=== PATIENT | male | born 1985 | race Two or more races ===

== ENCOUNTER 2025-08-10 20:07 | Inpatient (IN) | payer MEDICAID, SELFPAY ==
[2025-08-10] VITALS (8 sets, daily range): BP systolic 121–135; BP diastolic 79–89; PULSE 76–129; RESP 18–20; TEMP 37.2–39.1; O2SAT 92–98; BMI 39.1
--- NOTE | 2025-08-10 20:36 | PD.EDABDPN ---
ED Abdominal Pain RME/HPI General Chief Complaint: Abdominal Pain Stated complaint: RUQ ABD PAIN Time seen by provider: 08/10/25 21:02 Arrival date/time: 08/10/25 20:07 RME / HPI RME / HPI narrative: See [facility] for Dr. Briggs's HPI Documentation. Related Data Home Medications ?Medication ?Instructions ?Recorded ?Confirmed fluconazole 50 mg tablet (Diflucan) 100 mg PO QDAY 03/21/18 03/21/18 Previous Rx's ?Medication ?Instructions ?Recorded acetaminophen 500 mg capsule 1,000 mg (2 x 500 mg) PO Q6H PRN 09/07/20 fever or pain #60 caps albuterol sulfate 90 mcg/actuation 2 puff inhalation QID PRN 09/07/20 aerosol inhaler shortness of breath or wheezing #18 grams azithromycin 250 mg tablet See Rx Instructions PO .COMPLEX #6 09/07/20 tabs Allergies Allergy/AdvReac Type Severity Reaction Status Date / Time No Known Allergies Allergy Verified 08/11/25 12:19 Review of Systems Review of Systems Systems Reviewed: All systems reviewed, normal except as documented ED Exam Narrative Physical exam: See [facility] for Dr. Briggs's Physical Exam Documentation. Course Quality Measures none Orders Category Date Time Status Admit to Inpatient Status Routine Admission 08/11/25 04:06 Active Patient Condition Routine Admission 08/11/25 04:06 Ordered COVID-19 Screening Questionnaire NOW Care 08/11/25 03:06 Completed Decision to Admit X1 Care 08/11/25 03:06 Completed Miscellaneous Nursing Order NOW Care 08/10/25 20:42 Completed NPO NOW Care 08/11/25 03:06 Completed Saline [Insert IV] NOW Care 08/10/25 20:[address] abdomen pelvis wo con Stat Exams 08/10/25 20:43 Completed US gall bladder Stat Exams 08/10/25 20:43 Completed XR chest 1V portable Stat Exams 08/10/25 20:43 Completed Alcohol, Blood Medical Stat Lab 08/10/25 21:12 Completed Amylase Stat Lab 08/10/25 21:12 Completed Bilirubin,Direct Stat Lab 08/10/25 21:12 Completed Blood Culture (Lab) Stat Lab 08/10/25 21:12 Received CBC Stat Lab 08/10/25 21:09 Completed CMP [Comprehensive Metabolic Panel] Stat Lab 08/10/25 21:12 Completed CRP [C-Reactive Protein] Stat Lab 08/10/25 21:12 Completed Comprehensive Metabolic Panel Stat Lab 08/11/25 03:23 Completed ESR [Sed Rate (ESR)] Stat Lab 08/10/25 21:09 Completed Hemoglobin A1C [Glycohemoglobin w (eAG)] Stat Lab 08/10/25 21:09 Completed Lactate (Lactic Acid) Stat Lab 08/10/25 21:12 Completed Lipase Stat Lab 08/10/25 21:12 Completed Lipid Panel Stat Lab 08/11/25 03:23 Completed Liver Panel Stat Lab 08/11/25 03:23 Completed Magnesium Stat Lab 08/10/25 21:12 Completed Procalcitonin Stat Lab 08/10/25 21:12 Completed TSH [Thyroid Stimulating Hormone] Stat Lab 08/10/25 21:12 Completed Troponin I Stat Lab 08/10/25 21:12 Completed UA, C/S IF [Urinalysis, C/S if Indicated] Stat Lab 08/11/25 00:33 Ordered VBG [Venous Blood Gas] Stat Lab 08/10/25 21:12 Completed Acetaminophen Tab [Tylenol ES Tab] Med 08/10/25 21:17 Discontinued 1,000 mg PO X1 ONE Acetaminophen Tab [Tylenol Tab] Med 08/11/25 04:08 Active 650 mg PO Q6H PRN Enoxaparin [Lovenox] Med 08/11/25 09:00 Active 40 mg SC QDAY HYDROcodone*/APAP 5/325 [Courtenay 5/325] Med 08/11/25 04:08 Active 1 tab PO Q6HR PRN HYDROmorphone INJ [Dilaudid Inj] Med 08/10/25 20:42 Discontinued 1 mg IVP X1 ONE Ketorolac Inj [Toradol Inj] Med 08/10/25 20:42 Discontinued 30 mg IVP X1 ONE Morphine* Inj Med 08/11/25 04:08 Discontinued 2 mg IVP Q4HR PRN Ondansetron Inj [Zofran Inj] Med 08/11/25 04:08 Active 4 mg IVP Q6H PRN Ondansetron Inj [Zofran Inj] Med 08/10/25 20:42 Discontinued 4 mg IVP X1 ONE Piper/Tazo Inj [Zosyn Inj] 4.5 gm Med 08/11/25 06:00 Active Sodium Chloride 0.9% (Pop) [NS 0.9% mini bag] 100 ml IV Q8HR Piper/Tazo Inj [Zosyn Inj] 4.5 gm Med 08/10/25 23:03 Discontinued Sodium Chloride 0.9% (Pop) [NS 0.9% mini bag] 100 ml IV X1 Ringers Lactated 1000 ml [Lactated Ringers] 1,000 ml Med 08/10/25 20:41 Discontinued IV 1,000 mls/hr Ringers Lactated 1000 ml [Lactated Ringers] 1,000 ml Med 08/10/25 20:42 Discontinued IV 1,000 mls/hr Ringers Lactated 1000 ml [Lactated Ringers] 1,000 ml Med 08/11/25 04:15 Discontinued IV 75 mls/hr Ringers Lactated 1000 ml [Lactated Ringers] 1,000 ml Med 08/11/25 03:00 Discontinued IV 999 mls/hr Code Status Routine Oth 08/11/25 04:03 Ordered Vital Signs Vital signs: Vital Signs Temperature 99.5 F 08/10/25 20:33 Pulse Rate 129 H 08/10/25 20:33 Respiratory Rate 19 08/10/25 20:33 Blood Pressure 129/81 08/10/25 20:33 Pulse Oximetry (%) 97 08/10/25 20:33 Oxygen Delivery Method Room Air 08/10/25 20:33 Abdominal Pain MDM MDM Narrative MDM Narrative:: This section includes all my notes and documentations, including HPI, PE, and ED course. Dennis Briggs MD HPI: 39 y/o male presents with severe abdominal pain, vomiting, and subjective fever and chills and bodyaches and malaise for several days. Had similar episode about 6 months ago. No other complaints. ROS: All negative except as documented in HPI. Physical Exam: General: Alert and oriented. In severe pain. Eyes: Conjunctivae and lids clear. ENT: No nasal congestion. Neck: Supple. Heart: RRR. Lungs: No respiratory distress. Good air movement. No rhonchi, wheezing, rales. Abdomen: Soft with RUQ tenderness. Decreased bowel sounds. No distension. No rebound or guarding. Back: No CVA tenderness. Skin: Warm and dry. Neuro: Alert and oriented X 3. I reviewed all diagnostic test results: My interpretation of the chest x-ray is: NAD. My review of the Abdomen/Pelvis CT report is no acute cholecystitis. My review of the Gall Bladder US report is acute cholecystitis. Blood tests and urine tests remarkable for WBC 23.7. At this point, diagnoses include: Acute Cholecystitis Treatment here from me included: IVF Dilaudid 1 mg IV Toradol 30 mg IV Oral Tylenol 1000 mg Zofran 4 mg IV Zosyn 4.5 g IV His pain improved. I discussed the case with our surgeon and our hospitalist. About the presentation and exam and diagnostics and treatments here. And need of further care in the hospital. Agreed to accept the patient. Dennis Briggs MD Patient data External records reviewed:: [facility] previous records (Reviewed prior ED records from 02/28/22. Patient was seen for Dysuria.) Clinical information provided by:: patient Social determinants that could affect healthcare access:: none Patient has the following chronic illnesses:: None reported How is presenting disease/condition affected by chronic disease/condition?: no chronic disease Evaluation data The following diagnostics were reviewed and interpreted by me:: lab results and radiology exam(s) Lab and/or radiology exams considered but not ordered:: None Interpretation Summary: I reviewed all diagnostic test results: My interpretation of the chest x-ray is: NAD. My review of the Abdomen/Pelvis CT report is no acute cholecystitis. My review of the Gall Bladder US report is acute cholecystitis. Blood tests and urine tests remarkable for WBC 23.7. Medications / Prescriptions Medications or Prescriptions considered but not ordered:: None Medication administrations:: Medication Administration History Acetaminophen (Acetaminophen 325 Mg Tablet) 650 mg PO Q6H PRN PRN Reason: Fever >100.4 Stop: 09/10/25 04:07 Hydrocodone Bitart/Acetaminophen (Hydrocodone/Apap 5/325 Tablet) 1 tab PO Q6HR PRN PRN Reason: PAIN SCALE 4-6 (Moderate Stop: 08/16/25 04:07 Enoxaparin Sodium (Enoxaparin Sod Inj 40 Mg/0.4 Ml Syringe) 40 mg SC QDAY KENDY Stop: 08/25/25 08:59 Last Admin: 08/11/25 08:27 Dose: 40 mg Documented By: MICHELLE Piperacillin Sod/Tazobactam (Sod 4.5 gm/ Sodium Chloride) 100 mls @ 25 mls/hr IV Q8HR [facility]; Protocol Stop: 08/18/25 05:59 Last Admin: 08/11/25 14:18 Dose: 25 mls/hr Documented By: Infusion: 08/11/25 12:27 Dose: Infused Documented By: Admin: 08/11/25 08:27 Dose: 25 mls/hr Documented By: MICHELLE Sodium Chloride (Ns) 1,000 mls @ 125 mls/hr IV .Q8H KENDY Stop: 09/10/25 13:09 Last Admin: 08/11/25 18:15 Dose: 125 mls/hr Documented By: MICHELLE Ketorolac Tromethamine (Ketorolac Inj 30 Mg/Ml Vial) 30 mg IVP Q6HR PRN PRN Reason: PAIN 1-6 (mild-mod Stop: 08/16/25 13:09 Last Admin: 08/11/25 18:15 Dose: 30 mg Documented By: MICHELLE Morphine Sulfate (Morphine Sulf Inj 4 Mg/Ml Vial) 5 mg IVP Q4HR PRN PRN Reason: PAIN SCALE 4-6 (Moderate Stop: 08/16/25 13:09 Ondansetron HCl (Ondansetron Inj 2 Mg/Ml Inj 2 Ml) 4 mg IVP Q6H PRN; Protocol PRN Reason: NAUSEA OR VOMITING Stop: 09/10/25 04:07 Ondansetron HCl (Ondansetron Inj 2 Mg/Ml Inj 2 Ml) 4 mg IVP Q4HR PRN PRN Reason: NAUSEA OR VOMITING Stop: 09/10/25 13:09 Discontinued Medications Acetaminophen (Acetaminophen 500 Mg Tablet) 1,000 mg PO X1 ONE Stop: 08/10/25 21:18 Last Admin: 08/10/25 21:36 Dose: 1,000 mg Documented By: Bupivacaine HCl/Epinephrine Bitart (Bupivacaine Mpf/Epi 0.5% 30 Ml Vial 1:200,000) Confirm Administered Dose 30 ml .ROUTE .STK-MED ONE Stop: 08/11/25 09:23 Dexamethasone Sodium Phosphate (Dexamethasone Sod Phos Inj 10 Mg/Ml Vial) Confirm Administered Dose 10 mg .ROUTE .STK-MED ONE Stop: 08/11/25 09:23 Fentanyl Citrate (Fentanyl Cit Inj 50 Mcg/Ml Amp 2ml) Confirm Administered Dose 100 mcg .ROUTE .STK-MED ONE Stop: 08/11/25 09:23 Fentanyl Citrate (Fentanyl Cit Inj 50 Mcg/Ml Amp 2ml) Confirm Administered Dose 100 mcg .ROUTE .STK-MED ONE Stop: 08/11/25 10:30 Fentanyl Citrate (Fentanyl Cit Inj 50 Mcg/Ml Amp 2ml) 50 mcg IVP Q5MIN PRN PRN Reason: PAIN SCALE 4-10(Mod-Sev Stop: 08/11/25 13:23 Hydralazine HCl (Hydralazine Inj 20 Mg/Ml Vial) 5 mg IV Q20MIN PRN PRN Reason: SEE COMMENTS Stop: 08/11/25 13:23 Hydromorphone HCl (Hydromorphone Inj 2 Mg/Ml Vial) 1 mg IVP X1 ONE Stop: 08/10/25 20:43 Last Admin: 08/10/25 21:18 Dose: 1 mg Documented By: SR Hydromorphone HCl (Hydromorphone Inj 2 Mg/Ml Vial) Confirm Administered Dose 2 mg .ROUTE .STK-MED ONE Stop: 08/11/25 09:36 Hydromorphone HCl (Hydromorphone Inj 2 Mg/Ml Vial) 0.5 mg IVP Q10MIN PRN PRN Reason: PAIN SCALE 4-10(Mod-Sev Stop: 08/11/25 13:23 Lactated Ringer's (Lactated Ringers) 1,000 mls @ 1,000 mls/hr IV .Q1H ONE Stop: 08/10/25 21:40 Last Infusion: 08/10/25 22:38 Dose: Infused Documented By: Admin: 08/10/25 21:38 Dose: 1,000 mls/hr Documented By: Infusion: 08/10/25 21:38 Dose: Infused Documented By: Admin: 08/10/25 21:27 Dose: 1,000 mls/hr Documented By: SR Lactated Ringer's (Lactated Ringers) 1,000 mls @ 1,000 mls/hr IV .Q1H ONE Stop: 08/10/25 21:41 Last Infusion: 08/10/25 22:11 Dose: Infused Documented By: Admin: 08/10/25 21:11 Dose: 1,000 mls/hr Documented By: SR Piperacillin Sod/Tazobactam (Sod 4.5 gm/ Sodium Chloride) 100 mls @ 200 mls/hr IV X1 ONE; Protocol Stop: 08/10/25 23:32 Last Infusion: 08/11/25 00:12 Dose: Infused Documented By: Admin: 08/10/25 23:42 Dose: 200 mls/hr Documented By: SR Lactated Ringer's (Lactated Ringers) 1,000 mls @ 999 mls/hr IV .Q1H1M ONE Stop: 08/11/25 04:00 Last Infusion: 08/11/25 07:55 Dose: Infused Documented By: Admin: 08/11/25 04:50 Dose: 999 mls/hr Documented By: SR Lactated Ringer's (Lactated Ringers) 1,000 mls @ 75 mls/hr IV .[id number] KENDY Stop: 09/10/25 04:14 Last Admin: 08/11/25 14:18 Dose: 75 mls/hr Documented By: Infusion: 08/11/25 14:18 Dose: Infused Documented By: Admin: 08/11/25 06:02 Dose: 75 mls/hr Documented By: SR Acetaminophen (Ofirmev Inj) Confirm Administered Dose 100 mls @ ud IV .STK-MED ONE Stop: 08/11/25 09:57 Promethazine HCl 12.5 mg/ (Sodium Chloride) 50.5 mls @ 2.5 mls/min IV X1 PRN PRN Reason: NAUSEA OR VOMITING Stop: 08/11/25 13:24 Ketorolac Tromethamine (Ketorolac Inj 30 Mg/Ml Vial) 30 mg IVP X1 ONE Stop: 08/10/25 20:43 Last Admin: 08/10/25 21:29 Dose: 30 mg Documented By: SR Ketorolac Tromethamine (Ketorolac Inj 30 Mg/Ml Vial) 30 mg IVP X1 PRN PRN Reason: PAIN SCALE 4-10(Mod-Sev Stop: 08/11/25 13:23 Lidocaine HCl (Lidocaine Inj Pf 1% 5 Ml Vial) Confirm Administered Dose 5 ml .ROUTE .STK-MED ONE Stop: 08/11/25 09:25 Meperidine HCl (Meperidine Inj 50 Mg/Ml Vial) 12.5 mg IVP Q5M PRN PRN Reason: SHIVERING Stop: 08/11/25 13:23 Metoprolol Tartrate (Metoprolol Tartrate Inj 1 Mg/Ml Vial 5 Ml) 1 mg IVP Q5MIN PRN PRN Reason: TACHYCARDIA Stop: 08/11/25 13:24 Midazolam HCl (Midazolam Inj 1 Mg/Ml Vial 2 Ml) Confirm Administered Dose 2 mg .ROUTE .STK-MED ONE Stop: 08/11/25 09:36 Midazolam HCl (Midazolam Inj 1 Mg/Ml Vial 2 Ml) 1 mg IVP Q5MIN PRN PRN Reason: ANXIETY Stop: 08/11/25 13:23 Morphine Sulfate (Morphine Sulf Inj 4 Mg/Ml Vial) 2 mg IVP Q4HR PRN PRN Reason: PAIN SCALE 7-10 (Severe Stop: 08/16/25 04:07 Ondansetron HCl (Ondansetron Inj 2 Mg/Ml Inj 2 Ml) 4 mg IVP X1 ONE; Protocol Stop: 08/10/25 20:43 Last Admin: 08/10/25 21:18 Dose: 4 mg Documented By: Ondansetron HCl (Ondansetron Inj 2 Mg/Ml Inj 2 Ml) Confirm Administered Dose 4 mg .ROUTE .STK-MED ONE Stop: 08/11/25 10:30 Phenylephrine HCl (Phenylephrine Inj In Ns 100 Mcg/Ml 10 Ml Syringe) Confirm Administered Dose 1,000 mcg .ROUTE .STK-MED ONE Stop: 08/11/25 09:59 Potassium Chloride (Potassium Chloride 20 Meq Tabcr) 40 meq PO X1 ONE Stop: 08/11/25 07:57 Last Admin: 08/11/25 08:27 Dose: 40 meq Documented By: MICHELLE Propofol (Propofol Inj 10 Mg/Ml Vial 20 Ml) Confirm Administered Dose 400 mg IV .STK-MED ONE Stop: 08/11/25 09:23 Rocuronium Ramona (Rocuronium Inj 10 Mg/Ml Vial 10 Ml) Confirm Administered Dose 100 mg .ROUTE .STK-MED ONE Stop: 08/11/25 09:23 Treatment here from [place] included: IVF Dilaudid 1 mg IV Toradol 30 mg IV Oral Tylenol 1000 mg Zofran 4 mg IV Zosyn 4.5 g IV Consultations Consultation(s) initiated? (list below): Yes Consultation #1 (Physician, Specialty, Details): I discussed the case with our surgeon and our hospitalist. About the presentation and exam and diagnostics and treatments here. And need of further care in the hospital. Agreed to accept the patient. Diagnosis Differential diagnosis abdominal pain: acute appendicitis, calculus of kidney, constipation, diverticulitis, gastroenteritis, pancreatitis, small bowel obstruction and other (Biliary colic) Most likely diagnosis given after review of the tests above:: Acute Cholecystitis Admission Indicated Admission indicated?: indicated Explain why admission is indicated or not indicated:: Acute Cholecystitis Admission Request Was there a request for admission?: Yes Admission Attestation Admission request attestation: Discussed case with Hospitalist service regarding admission. Discussed patients ED course, exam findings, labs, and radiology results. Agreed to accept the patient for admission. Disposition Plan Disposition Plan: Admit Discharge Plan Plan Patient Disposition: Admit Acute Care w/in Hospital Problem List Clinical Impression: Acute cholecystitis
--- NOTE | 2025-08-10 20:43 | XR_ITS ---
Examination: CT abdomen and pelvis without contrast. Coronal 3-D reconstructions. Sagittal 2-D reconstructions. Date and time of exam: August 10, 2025, 2056 hours INDICATIONS: Right upper abdominal pain back pain beginning 4 days ago CTDI: vol (mGy): 14.5 DLP: (mGycm): 987 Technique: Axial images of the abdomen have been obtained, 3 mm slice thickness Intravenous contrast material has not been administered. Low dose protocols were performed. One or more of the following dose reduction techniques were used; automated exposure control, adjustment of the mA and/or KV according to patient size, use of iterative reconstruction technique. Findings: No focal liver or splenic lesions Acute calculus cholecystitis No pancreatic or adrenal mass No renal or ureteral calculi Aorta normal size No bowel obstruction Small fat-containing clinical hernia Normal appendix No diverticulitis No bowel obstruction Bladder intact IMPRESSION: Acute calculus cholecystitis, consider MRCP follow-up
--- NOTE | 2025-08-10 20:43 | XR_ITS ---
Examination: Abdomen sonogram, Limited Date and time of exam: August 11, 2025, 0036 hours INDICATIONS: Right upper abdominal pain beginning 4 days ago Technique: Real-time thao scale transabdominal sonographic images of the upper abdomen obtained. Findings: Multiple gallstones Borderline thickening gallbladder wall 0.4 cm Common bile duct 0.3 cm Pancreas obscured by bowel gas Liver 17.2 cm smooth contour no focal liver lesions Normal hepatopetal portal venous flow Patent IVC IMPRESSION: Cholelithiasis, consider MRCP or HIDA scan follow-up to exclude cholecystitis
--- NOTE | 2025-08-10 20:43 | XR_ITS ---
EXAMINATION: PA chest single view TECHNIQUE: Upright PA chest single view Date and time: August 10, 2025, 2042 hours INDICATIONS: Fever backache beginning 3 days ago. FINDINGS: Normal heart size Lungs are clear. Osseous structures are intact IMPRESSION: No active disease
[2025-08-10] MEDS: RINGERS LACTATED 1000 ML 1,000 ML IV ×3 (21:11→21:38)
[2025-08-10] MEDS: ONDANSETRON INJ 2 MG/ML INJ 2 ML 4 MG IVP (21:18)
[2025-08-10] MEDS: HYDROmorphone INJ 2 MG/ML VIAL 1 MG IVP (21:18)
[2025-08-10] MEDS: KETOROLAC INJ 30 MG/ML VIAL IVP (21:29)
[2025-08-10 21:31] LABS: Base Excess, Venous 4 (-3-3); O2 Saturation, Venous 95 % (96-97); PCO2, Venous 30 mmHg (36-56); PO2, Venous 61 mmHg (15-58); pH, Venous 7.53 (7.33-7.66)
[2025-08-10 21:32] LABS: Lactate (Lactic Acid) 1.2 mMol/L (0.4-2.0)
[2025-08-10 21:32] LABS: Basophils # (Auto) 0.1 Thou/mm3 (0.0-0.2); Basophils % (Auto) 0 % (0-2.5); Eosinophils # (Auto) 0.2 Thou/mm3 (0.0-0.5); Eosinophils % (Auto) 1 % (0-10); Hematocrit 44.3 % (41.0-53.0); Hemoglobin 15.4 g/dL (13.5-16.0); Immature Granulocytes Auto 0.14 Thou/mm3 (0.00-0.00); Lymphocytes # (Auto) 1.7 Thou/mm3 (1.0-4.8); Lymphocytes % (Auto) 7 % (10-50); Mean Corpuscular HGB Conc 34.8 g/dl (31.0-37.0); Mean Corpuscular Hemoglobin 29.5 pg (25.0-35.0); Mean Corpuscular Volume 85 fL (80-100); Monocytes # (Auto) 2.2 Thou/mm3 (0.0-0.8); Monocytes % (Auto) 9 % (0-12); Neutrophils # (Auto) 19.5 Thou/mm3 (1.8-7.7); Neutrophils % (Auto) 82 % (37-80); Nucleated Red Blood Cell # 0.00 Thou/mm3 (0.00-0.00); Nucleated Red Blood Cell % 0 /100 WBC (0); Platelet Count 316 Thou/mm3 (140-440); RDW Standard Deviation 40.5 fL (35.1-43.9); Red Blood Count 5.22 Miln/mm3 (4.50-5.90); White Blood Count 23.7 Thou/mm3 (3.8-10.6)
[2025-08-10] MEDS: ACETAMINOPHEN 500 MG TABLET 1000 MG PO (21:36)
[2025-08-10 21:49] LABS: Glucose Estimated Average 94 mg/dL (80-131); Hemoglobin A1C 4.9 % Hgb (4.8-6.0)
[2025-08-10 22:19] LABS: Sed Rate (ESR) 79 mm/hr (0-15)
[2025-08-10 22:42] LABS: Alanine Aminotransferase 19 U/L (10-49); Albumin, Serum 4.4 gm/dL (3.5-5.0); Albumin/Globulin Ratio 1.3 (1.2-2.2); Alcohol, Blood Medical < 3.0 mg/dL (0-10.0); Alkaline Phosphatase 85 U/L (46-116); Anion Gap 11 (7-16); Aspartate Amino Transferase 26 U/L (0-34); BUN/Creatinine Ratio 8 Ratio (12-20); Bilirubin,Direct 0.7 mg/dL (0.0-0.3); Bilirubin,Total 1.6 mg/dL (0.3-1.2); Blood Urea Nitrogen 7 mg/dL (9-23); Calcium 9.6 mg/dL (8.3-10.6); Calcium (Corrected) 9.6 mg/dL (8.5-10.1); Carbon Dioxide 25.4 mMol/L (20.0-31.0); Chloride 102 mMol/L (98-107); Creatinine (Component) 0.9 mg/dL (0.6-1.3); Estimated Creatinine Clearance 142.5 mL/min (>60); Globulin 3.3 gm/dL (2.3-3.5); Glucose 115 mg/dL (74-106); Lipase 30 U/L (12-53); Magnesium 2.0 mg/dL (1.6-2.6); Osmolality,Calculated 274 (275-295); Potassium 3.4 mMol/L (3.4-5.1); Procalcitonin 0.50 ng/ml (0.0-0.49); Sodium 138 mMol/L (136-145); Thyroid Stimulating Hormone 1.37 uIU/mL (0.55-4.78); Total Protein 7.7 gm/dL (5.7-8.2); Troponin I < 0.002 ng/mL (0.0-0.045); eGFR > 60 See Note
[2025-08-10 23:19] LABS: Amylase 46 U/L (30-118); C-Reactive Protein > 25.0 mg/dL (0.0-0.9)
[2025-08-10] MEDS: PIPER/TAZO INJ 4.5 GM in SODIUM CHLORIDE 0.9% (POP) 100 ML IV (23:42)
[2025-08-11] VITALS (12 sets, daily range): BP systolic 97–136; BP diastolic 56–89; PULSE 65–98; RESP 14–18; TEMP 36.1–36.9; O2SAT 92–98; BMI 39.1
--- NOTE | 2025-08-11 01:36 | PRELIM_ITS ---
Right upper quadrant abdominal ultrasound with Limited Doppler. August 11, 2025 at 0036 hours Clinical history: RUQ tenderness. No prior study is available for comparison. Findings: The evaluation is limited due to overlying bowel gas. The liver is enlarged, measuring 17.2 cm and demonstrates increase in echogenicity and heterogeneous echotexture. No intrahepatic biliary ductal dilatation is demonstrated. The main portal vein is patent and demonstrates hepatopetal flow. Multiple echogenic foci are noted within the gallbladder, which may represent calculi. There is gallbladder wall thickening, measuring 3.7 mm. No evidence of pericholecystic fluid. Sonographic Hurley sign could not be elicited, the patient has received pain medication. The common bile duct is normal in caliber at 3 mm. The pancreas is not visualized, due to bowel gas. The inferior vena cava is unremarkable to the extent visualized. Impression: Limited evaluation as described. Cholelithiasis with gallbladder wall thickening, in the appropriate clinical setting, the possibility of acute cholecystitis cannot be excluded. Hepatomegaly with fatty infiltration of the liver and heterogeneous echotexture, which may represent liver parenchymal disease. Report Electronically Signed By: Darien Delvalle 08/11/2025 1:35:08 AM [EST]
--- NOTE | 2025-08-11 01:48 | PC.NURSE ---
[facility] has been contacted, awaiting on their arrival to complete US.
[2025-08-11 03:57] LABS: Alanine Aminotransferase 19 U/L (10-49); Albumin, Serum 3.8 gm/dL (3.5-5.0); Alkaline Phosphatase 75 U/L (46-116); Aspartate Amino Transferase 23 U/L (0-34); Bilirubin,Direct 0.8 mg/dL (0.0-0.3); Bilirubin,Total 1.5 mg/dL (0.3-1.2); Total Protein 6.8 gm/dL (5.7-8.2)
--- NOTE | 2025-08-11 04:14 | PD.RESHP ---
Documentation for date of: 08/11/25 HPI History of Present Illness History of present illness: 39-year-old male with remote history of valley fever who presents to the ED for acute onset abdominal pain. Patient states that he was in his usual state of health until he experienced sudden onset pain approximately 3 days ago with associated fever, chills, nausea, and vomiting as well as decreased p.o. intake. States pain is located in mid lower abdominal region as well as his right upper quadrant, is sharp in nature and radiates to his back and right shoulder. In addition, states that his urine has become dark brown in color and that others have noticed his skin becoming yellow appearing. Of note, he had a similar episode approximately 5 to 6 months ago and did not seek out medical attention as it had self-resolved. In the ED, vitals showed pulse of 129, Tmax of 102.3 ?F. CBC showed leukocytosis of 23.7. CHEM panel significant for elevated T. bili at 1.6 and direct bili of 0.7, normal LFTs and alk phos, CRP greater than 25, Pro-Segundo 0.5. CT A/P showed acute calculous cholecystitis and small fat-containing hernia. CXR unremarkable. Gallbladder ultrasound prelim read indicates cholelithiasis with possible acute cholecystitis and no CBD abnormalities noted. Given 3 L LR, Zofran, Dilaudid 1 mg x 1, ketorolac 30 mg x 1, and Zosyn. General surgery consulted and states will take patient to the OR tomorrow morning. PMHx: Valley fever Medications: None SHx: Drinks socially, denies smoking or illicit drug use PSHx: None Review of Systems Review of Systems Systems Reviewed: All systems reviewed, normal except as documented Exam Vital Signs Temp Pulse Resp BP Pulse Ox O2 Del Method 98.5 F 84 17 126/74 96 Room Air 08/11/25 03:00 08/11/25 03:00 08/11/25 03:00 08/11/25 03:00 08/11/25 03:00 08/11/25 03:00 Narrative Exam General: AOx3, no acute distress, able to speak full sentences HEENT: NC/AT, mucous membranes moist, bilateral sclera anicteric Cardiovascular: regular rate and rhythm, S1/S2 present, no murmurs appreciated Pulmonary: clear to auscultation bilaterally, no rales/rhonchi/wheezes Abdominal: RUQ tenderness to soft palpation, soft, non-distended Musculoskeletal: normal ROM, no peripheral edema Skin: warm and dry, intact, no rashes Neuro: CN II-XII intact, no focal deficits Results: Labs 08/12/25 05:37 08/12/25 05:37 Labs: Short CBC 08/10/25 Range/Units 21:09 WBC 23.7 H (3.8-10.6) Thou/mm3 Hgb 15.4 (13.5-16.0) g/dL Hct 44.3 (41.0-53.0) % Plt Count 316 (140-440) Thou/mm3 BMP 08/10/25 21:12 Sodium 138 Potassium 3.4 Chloride 102 Carbon Dioxide 25.4 BUN 7 L Creatinine 0.9 Glucose 115 H Calcium 9.6 Cardiac Enzymes 08/10/25 Range/Units 21:12 Troponin I < 0.002 (0.0-0.045) ng/mL Liver Function 08/10/25 08/11/25 Range/Units 21:12 03:23 Total Bilirubin 1.6 H 1.5 H (0.3-1.2) mg/dL Direct Bilirubin 0.7 H 0.8 H (0.0-0.3) mg/dL AST 26 23 (0-34) U/L ALT 19 19 (10-49) U/L Alkaline Phosphatase 85 75 (46-116) U/L Albumin 4.4 3.8 D (3.5-5.0) gm/dL ABG Interpretation ABG results: 08/10/25 21:12 VBG pH 7.53 VBG pCO2 30 L VBG pO2 61 H VBG Base Excess 4 H Quality Measures Quality Measures VTE prophylaxis Medications Home Medications and Allergies Home Medications ?Medication ?Instructions ?Recorded ?Confirmed ?Type fluconazole 50 mg tablet (Diflucan) 100 mg PO QDAY 03/21/18 08/12/25 History Allergies Allergy/AdvReac Type Severity Reaction Status Date / Time No Known Allergies Allergy Verified 08/11/25 12:19 Visit Medications Acetaminophen (Acetaminophen 325 Mg Tablet) 650 mg PO Q6H PRN PRN Reason: Fever >100.4 Stop: 09/10/25 04:07 Hydrocodone Bitart/Acetaminophen (Hydrocodone/Apap 5/325 Tablet) 1 tab PO Q6HR PRN PRN Reason: PAIN SCALE 4-6 (Moderate Stop: 08/16/25 04:07 Enoxaparin Sodium (Enoxaparin Sod Inj 40 Mg/0.4 Ml Syringe) 40 mg SC QDAY KENDY Stop: 08/25/25 08:59 Piperacillin Sod/Tazobactam (Sod 4.5 gm/ Sodium Chloride) 100 mls @ 200 mls/hr IV Q6HR KENDY; Protocol Stop: 08/18/25 02:59 Lactated Ringer's (Lactated Ringers) 1,000 mls @ 75 mls/hr IV .[id number] KENDY Stop: 09/10/25 04:14 Morphine Sulfate (Morphine Sulf Inj 4 Mg/Ml Vial) 2 mg IVP Q4HR PRN PRN Reason: PAIN SCALE 7-10 (Severe Stop: 08/16/25 04:07 Ondansetron HCl (Ondansetron Inj 2 Mg/Ml Inj 2 Ml) 4 mg IVP Q6H PRN; Protocol PRN Reason: NAUSEA OR VOMITING Stop: 09/10/25 04:07 Discontinued Medications Acetaminophen (Acetaminophen 500 Mg Tablet) 1,000 mg PO X1 ONE Stop: 08/10/25 21:18 Last Admin: 08/10/25 21:36 Dose: 1,000 mg Hydromorphone HCl (Hydromorphone Inj 2 Mg/Ml Vial) 1 mg IVP X1 ONE Stop: 08/10/25 20:43 Last Admin: 08/10/25 21:18 Dose: 1 mg Lactated Ringer's (Lactated Ringers) 1,000 mls @ 1,000 mls/hr IV .Q1H ONE Stop: 08/10/25 21:40 Last Infusion: 08/10/25 22:38 Dose: Infused Lactated Ringer's (Lactated Ringers) 1,000 mls @ 1,000 mls/hr IV .Q1H ONE Stop: 08/10/25 21:41 Last Infusion: 08/10/25 22:11 Dose: Infused Piperacillin Sod/Tazobactam (Sod 4.5 gm/ Sodium Chloride) 100 mls @ 200 mls/hr IV X1 ONE; Protocol Stop: 08/10/25 23:32 Last Infusion: 08/11/25 00:12 Dose: Infused Lactated Ringer's (Lactated Ringers) 1,000 mls @ 999 mls/hr IV .Q1H1M ONE Stop: 08/11/25 04:00 Ketorolac Tromethamine (Ketorolac Inj 30 Mg/Ml Vial) 30 mg IVP X1 ONE Stop: 08/10/25 20:43 Last Admin: 08/10/25 21:29 Dose: 30 mg Ondansetron HCl (Ondansetron Inj 2 Mg/Ml Inj 2 Ml) 4 mg IVP X1 ONE; Protocol Stop: 08/10/25 20:43 Last Admin: 08/10/25 21:18 Dose: 4 mg Assessment & Plan Plan 39-year-old male with remote history of valley fever who is admitted for management of acute calculous cholecystitis. #Acute calculous cholecystitis #Hyperbilirubinemia #Intractable abdominal pain #Intraktable nausea and vomiting Sudden onset abdominal pain three days prior to admission with associated nausea, vomiting, fever, chills, dark-colored urine. Initial Tmax of 102.3 ?F and pulse of 129. Initial WBC of 23.7, ESR 79, CRP greater than 25, Pro-Segundo 0.5, T. bili 1.6, with normal LFTs. CT A/P showed acute calculous cholecystitis, small fat-containing hernia. Gallbladder ultrasound prelim read showed cholelithiasis and gallbladder wall thickening with normal CBD. ? Zosyn (08/10-) ? Follow-up blood cultures ? General Surgery consulted ? N.p.o. ? LR at 75 cc/h ? Multimodal pain management Hospital management: Disposition: pending cholecystectomy, IV antibiotics Fluids: LR at 75 cc/h Diet: NPO Lines: PIV DVT prophylaxis: enoxaparin 40 mg SC daily CODE STATUS: full code ----- Plan discussed with attending physician Dr. Hakan Stack MD PGY-2 Internal Medicine Attending Provider Attestation/Addendum After examination of the patient and review of the clinical data I feel that this patient needs admission to the hospital for further treatment/evaluation. Plan of care discussed with patient and is in agreement. I Sushma Mcclendon MD, attest that I was physically present for mae portions of evaluation, and examined patient, labs and imagings and plan of care were discussed with IM residents team, and I agree with the findings and plans documented above.
[2025-08-11] MEDS: RINGERS LACTATED 1000 ML 1,000 ML 999 ML IV (04:50)
[2025-08-11 05:24] LABS: Anion Gap 10 (7-16); BUN/Creatinine Ratio 8 Ratio (12-20); Blood Urea Nitrogen 8 mg/dL (9-23); Calcium 8.5 mg/dL (8.3-10.6); Calcium (Corrected) 8.7 mg/dL (8.5-10.1); Carbon Dioxide 27.9 mMol/L (20.0-31.0); Cardiac Risk Estimate 3.2 RATIO (4.0-6.7); Chloride 103 mMol/L (98-107); Cholesterol 124 mg/dL (132-200); Creatinine (Component) 1.0 mg/dL (0.6-1.3); Estimated Creatinine Clearance 128.2 mL/min (>60); Glucose 125 mg/dL (74-106); HDL Cholesterol 39 mg/dL (40-60); LDL Cholesterol,Calculated 65 mg/dL (0-130); Osmolality,Calculated 280 (275-295); Potassium 3.3 mMol/L (3.4-5.1); Sodium 141 mMol/L (136-145); Triglycerides 99 mg/dL (30-150); eGFR > 60 See Note
[2025-08-11] MEDS: RINGERS LACTATED 1000 ML 1,000 ML 75 ML IV ×2 (06:02→14:18)
[2025-08-11 06:17] LABS: Albumin/Globulin Ratio 1.3 (1.2-2.2); Globulin 3.0 gm/dL (2.3-3.5)
--- NOTE | 2025-08-11 06:35 | PC.NURSE ---
Patient came in to the ER from home via private vehicle. He is c/o abdominal pain 04/23. IV access to right AC, x-ray, US, CT have been completed, pain managed with pain medications, patient NPO as he will be goint to the OR this morning for possible gallbladder removal.
--- NOTE | 2025-08-11 07:55 | ESPR_ITS ---
Documentation for date of: 08/11/25 Subjective Subjective Interval history: s/p cholecystectomy with Dr. Grijalva: Patient is found to have extensive inflammation of the gallbladder and the omentum was covering it. After it was released gallbladder was found to have greenish drainage and this showed a perforation in the fundic region on iv abx zosyn Exam Vital Signs Temp Pulse Resp BP Pulse Ox O2 Del Method 98.1 F 75 18 116/75 98 Room Air 08/11/25 04:56 08/11/25 04:56 08/11/25 04:56 08/11/25 04:56 08/11/25 04:56 08/11/25 04:56 Narrative Exam General: AOx3, no acute distress, able to speak full sentences HEENT: NC/AT, mucous membranes moist, bilateral sclera anicteric Cardiovascular: regular rate and rhythm, S1/S2 present, no murmurs appreciated Pulmonary: clear to auscultation bilaterally, no rales/rhonchi/wheezes Abdominal: Obese, RUQ tenderness to soft palpation, soft, non-distended s/p cholecystectomy. Musculoskeletal: normal ROM, no peripheral edema Skin: warm and dry, intact, no rashes Neuro: CN II-XII intact, no focal deficits Objective Labs 08/10/25 21:09 08/11/25 03:23 Labs: Laboratory Results - last 24 hr 08/10/25 08/10/25 08/11/25 21:09 21:12 03:23 WBC 23.7 H RBC 5.22 Hgb 15.4 Hct 44.3 MCV 85 MCH 29.5 MCHC 34.8 RDW Std Deviation 40.5 Plt Count 316 Neut % (Auto) 82 H Lymph % (Auto) 7 L [place] % (Auto) 9 Eos % (Auto) 1 Baso % (Auto) 0 Neut # (Auto) 19.5 H Lymph # (Auto) 1.7 [place] # (Auto) 2.2 H Eos # (Auto) 0.2 Baso # (Auto) 0.1 Immature Gran # (Auto) 0.14 H Absolute Nucleated RBC 0.00 Immature Gran % 1 H Nucleated RBC % 0 ESR 79 H VBG pH 7.53 VBG pCO2 30 L VBG pO2 61 H VBG O2 Sat (Birgit) 95 L VBG Base Excess 4 H Sodium 138 141 Potassium 3.4 3.3 L Chloride 102 103 Carbon Dioxide 25.4 27.9 Anion Gap 11 10 BUN 7 L 8 L Creatinine 0.9 1.0 Estim Creat Clear Calc 142.5 128.2 eGFR > 60 > 60 BUN/Creatinine Ratio 8 L 8 L Glucose [address] Glu mg/dL 94 Hemoglobin A1c 4.9 Calculated Osmolality 274 L 280 Lactic Acid 1.2 Calcium 9.6 8.5 Corrected Calcium 9.6 8.7 Magnesium 2.0 Total Bilirubin 1.6 H 1.5 H Direct Bilirubin 0.7 H 0.8 H AST 26 23 ALT 19 19 Alkaline Phosphatase 85 75 Troponin I < 0.002 C-Reactive Prot, Quant > 25.0 H Total Protein 7.7 6.8 Albumin 4.4 3.8 D Globulin 3.3 3.0 Albumin/Globulin Ratio 1.3 1.3 Triglycerides 99 Cholesterol 124 L LDL Cholesterol, Calc 65 HDL Cholesterol 39 L Cholesterol/HDL Ratio 3.2 L Amylase 46 Lipase 30 Procalcitonin 0.50 H TSH 1.37 Ethyl Alcohol < 3.0 ABG Interpretation ABG results: 08/10/25 21:12 VBG pH 7.53 VBG pCO2 30 L VBG pO2 61 H VBG Base Excess 4 H Quality Measures Quality Measures VTE prophylaxis Assessment & Plan Assessment Current Active Medications: Generic Name Dose Route Start Last Admin Trade Name Freq PRN Reason Stop Dose Admin Acetaminophen 650 mg 08/11/25 04:08 Acetaminophen 325 Mg Tablet PO 09/10/25 04:07 Q6H PRN Fever >100.4 Hydrocodone Bitart/Acetaminophen 1 tab 08/11/25 04:08 Hydrocodone/Apap 5/325 Tablet PO 08/16/25 04:07 Q6HR PRN PAIN SCALE 4-6 (Moderate Enoxaparin Sodium 40 mg 08/11/25 09:00 Enoxaparin Sod Inj 40 Mg/0.4 Ml Syringe SC 08/25/25 08:59 QDAY KENDY Piperacillin Sod/Tazobactam 100 mls @ 25 mls/hr 08/11/25 06:00 Sod 4.5 gm/ Sodium Chloride IV 08/18/25 05:59 Q8HR KENDY Protocol Lactated Ringer's 1,000 mls @ 75 mls/hr 08/11/25 04:15 08/11/25 06:02 Lactated Ringers IV 09/10/25 04:14 75 mls/hr .[id number] KENDY Administration Morphine Sulfate 2 mg 08/11/25 04:08 Morphine Sulf Inj 4 Mg/Ml Vial IVP 08/16/25 04:07 Q4HR PRN PAIN SCALE 7-10 (Severe Ondansetron HCl 4 mg 08/11/25 04:08 Ondansetron Inj 2 Mg/Ml Inj 2 Ml IVP 09/10/25 04:07 Q6H PRN NAUSEA OR VOMITING Protocol Plan Mr. Bustamante is 39-year-old gentleman with remote history of valley fever who is admitted for management of acute calculous cholecystitis, s/p cholecystectomy on 08/11, cont with iv abx, advance diet as tolerated. #Acute severe calculous cholecystitis s/p lap cholecystectomy #Empyema of the gallbladder #Hyperbilirubinemia #Abdominal pain Sudden onset abdominal pain three days prior to admission with associated nausea, vomiting, fever, chills, dark-colored urine. Initial Tmax of 102.3 ?F and pulse of 129. Initial WBC of 23.7, ESR 79, CRP greater than 25, Pro-Segundo 0.5, T. bili 1.6, with normal LFTs. 08/11: pt had lap cholecystectomy with Dr. Grijalva, lots of inflammation, and perforation of the GB at fundus. Dx CT A/P showed acute calculous cholecystitis, small fat-containing hernia. Gallbladder ultrasound Acute calculus cholecystitis, Borderline thickening gallbladder wall 0.4 cm, Common bile duct 0.3 cm Plan: - Daily CBC, CMP ? IV Zosyn (08/10- ) ? Follow-up blood cultures ? General Surgery consulted, Patient is found to have extensive inflammation of the gallbladder and the omentum was covering it. After it was released gallbladder was found to have greenish drainage and this showed a perforation in the fundic region ? Clear liquid diet, advance as tolerated. ? LR at 75 cc/h ? Multimodal pain management Ketoralac 30mg q6hr prn APAP 650 q6hr prn morphine 5 q4hr prn Hypokalemia likely 2/2 gi losses in setting of cholecystitis above, pt had lots of nausea and vomiting Plan - replete as indicated - follow up pm renal panel Hospital management: Disposition: pending cholecystectomy, IV antibiotics Fluids: LR at 75 cc/h Diet: clear Lines: PIV DVT prophylaxis: enoxaparin 40 mg SC daily CODE STATUS: full code Plan discussed with my attending Dr. Bonnie Phipps MD PGY1 Attending Provider Attestation/Addendum I have seen and examined the patient. I was physically present for the mae portions of the services provided including history, physical exam, diagnosis, treatment plans and orders. I agree with assessment and plan of care as documented by residents. Patient is a 39 years old male with past medical history of valley fever who presented to the ED with complaint of abdominal pain. He was admitted overnight for management of acute calculous cholecystitis and intractable abdominal pain. Patient underwent laparoscopic cholecystectomy with general surgery. He was found to have extensive inflammation of the gallbladder and omentum covering it. He was also found to have greenish drainage and perforation in the fundic region after the gallbladder was released. MICHELLE drain was placed afterwards. With severe acute cholecystitis, empyema of the gallbladder, we will continue IV antibiotics and continue to monitor closely. Patient has been started on clear liquid diet. Even though this this note was carefully revised there may still be minor errors in wedding decorator due to voice recognition software. Marlon Nicole MD
[2025-08-11] MEDS: PIPER/TAZO INJ 4.5 GM in SODIUM CHLORIDE 0.9% (POP) 100 ML IV ×3 (08:27→21:11)
[2025-08-11] MEDS: ENOXAPARIN SOD INJ 40 MG/0.4 ML SYRINGE SC (08:27)
--- NOTE | 2025-08-11 09:45 | PD.SURCONS ---
HPI Consult details Consult date: 08/11/25 Reason for consultation narrative: Patient is seen in consultation because of acute calculous cholecystitis History of present illness: History of present illness revealed that the patient developed this pain on Thursday morning which was 4 days ago. The pain persisted and the patient could not eat much. She also had nausea and vomiting. Because of the increasing pain he came to the emergency room and was found to have a calculous cholecystitis. Patient had a similar episode about 5 to 6 months ago but the pain went away on its own. At that time he did not seek medical attention and therefore no diagnosis was made. 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 He denies major medical illness like diabetes or hypertension Meds Home Medications and Allergies Home Medications ?Medication ?Instructions ?Recorded ?Confirmed ?Type fluconazole 50 mg tablet (Diflucan) 100 mg PO QDAY 03/21/18 03/21/18 History Allergies Allergy/AdvReac Type Severity Reaction Status Date / Time No Known Allergies Allergy Verified 08/10/25 20:12 Exam Vital Signs Temp Pulse Resp BP Pulse Ox O2 Del Method 97.4 F 84 18 132/89 H 93 L Room Air 08/11/25 08:44 08/11/25 08:44 08/11/25 08:44 08/11/25 08:44 08/11/25 08:44 08/11/25 08:44 Narrative Exam Physical examination revealed an obese male he is 5 foot 9 inches tall weighing 265 pounds with BMI of 39.1. His vital signs are normal Constitutional Constitutional: severe distress Routine Chest/Breast/Axilla Exam Comments: Negative Routine Respiratory Exam Comments: Normal breath sounds on both sides Routine Cardiovascular Exam Comments: Sinus rhythm Routine Abdominal Exam Comments: Abdomen showed this to be protuberant because of his obesity. Patient does have considerable tenderness in the right upper quadrant with a strong positive Hurley sign. Actually patient has a localized peritoneal irritation in the right upper quadrant Routine Rectal Exam Comments: Negative Routine Exam Comments: Negative Routine Extremities Exam Comments: Within normal limits Results Results: Laboratory Laboratory Narrative: Patient's laboratory workup showed a WBC of 23,000 with a shift to the left. Liver enzymes appear normal Results: Imaging Imaging narrative: Ultrasound of the gallbladder showed acute cholecystitis and cholelithiasis. The CT scan Assessment & Plan Additional Assessment Additional comments: Impression: Acute cholecystitis with cholelithiasis 4 days old Obesity Plan Plan: I had a lengthy discussion with the patient and his and explained that he will require surgery. His pain is unrelenting and has a considerable tenderness. Patient wants to have the surgery as soon as possible. Since he has a marked leukocytosis of 23,000 patient will require immediate surgery. Because of his age and acute inflammation lasting 4 days patient may require open cholecystectomy. Patient also may have more bleeding during the course of surgery because of his size and difficulty in dissecting. Patient understands and wants to go over with the procedure which is planned today.
--- NOTE | 2025-08-11 10:21 | SUR.OPER ---
Bruise on right side of abdomen approximately 5 cm noted to be present before start of surgery.
--- NOTE | 2025-08-11 12:15 | SUR.PHASEI ---
Pt. arrived to recovery via gurney, eyes closed, responds to verbal commands, VSS, no c/o pain or nausea at this time, lung sounds clear, equal expansion tete., pt. receiving 4 liters 02 via NC, lap sites x4 to abdomen, CDI, MICHELLE drain to right lateral side of abdomen, serosanguineous fluid noted in collection bulb. Report received from Dr. Conner and James WALKER.
--- NOTE | 2025-08-11 12:19 | PD.SUROPNT ---
Date of Procedure 08/11/25 Pre Op Diagnosis Acute cholecystitis with cholelithiasis Post Op Diagnosis Severe acute cholecystitis with cholelithiasis and empyema of the gallbladder Procedure Laparoscopic cholecystectomy Findings Patient is found to have extensive inflammation of the gallbladder and the omentum was covering it. After it was released gallbladder was found to have greenish drainage and this showed a perforation in the fundic region Procedure Description After the patient was brought to the operating room treatment was given. Abdomen was prepped with ChloraPrep solution and draped in a sterile manner. Timeout was performed. The made incision over the umbilicus fascia was cleaned. Veress needle was inserted and a pneumoperitoneum was created up to 15 mmHg. Then I introduced a 12 mm trocar. Upon inspection I found out that the gallbladder was completely covered with omentum. I placed another 5 mm trocar in the epigastric region and 2 500 trocars laterally. I removed the omentum and I was able to see the gallbladder. At the top of the gallbladder there was a leak which was extruding bilious substance. Wound was irrigated and further dissection was continued. The midportion of the gallbladder opened up and purulent material from empyema of the gallbladder leaked out. This was compressed effectively and then neck was reached. I was able to then identified the cystic artery first and it was encircled. At this time I I placed a 12 mm trocar in the epigastric region from the 5 mm trocar. Then I used a large right angle to dissect out the artery clearly and then clipped doubly and divided. Then further dissection was carried out using harmonic susan and I was able to see the cystic duct which was clipped and divided. Then the gallbladder was removed from the liver bed and in the process it was tiring and the stones were coming out. After dissecting up to half of the gallbladder I found out that further dissection is very difficult because the gallbladder was firmly adherent to the liver. Therefore I opened the gallbladder at the area where it was leaking and removed all the stones one by one patient had a large stone there were all removed to the stone forceps by breaking them. Then I used a large 10 mm suction to aspirate some of the broken stones. I left the posterior wall of the gallbladder especially in the upper half and did not want to dissect out from the liver for fear of bleeding. So using harmonic susan I cut this gallbladder and pulled out through the Endopouch through the umbilical incision. The gallbladder lumen was coagulated with cautery. Then after checking for the bleeding points I applied 2 Surgicel's in the liver bed. I placed a 15 round Armin-Mcdonald and brought out through one of the stab wound and anchored to the skin with 2-0 silk. The trocars were pulled out the fascia was closed with interrupted 0 Ethibond and the umbilical region and skin was closed with 4-0 Monocryl sutures subcuticular in certain areas and 4-0 silk sutures in the umbilical region. Patient tolerated the procedure well and left operating room in stable condition Anesthesia GETA Pathology / specimen Other IVF Infused 1,100 Estimated Blood Loss 150 Condition Stable Disposition PACU Surgeon Airam Rivera MD Surgical Staff Operation Date: 08/11/25 09:45 Case Staff Anesthesiologist: Tyrese Conner RNtray line supervisor: Jenae Rowe
--- NOTE | 2025-08-11 12:44 | SUR.PHASEI ---
Called and gave report on pt. s/p danielle westbrook. to Reyna WALKER on M/S unit. Pt. is sitting up, tolerating ice chips.
--- NOTE | 2025-08-11 13:00 | SUR.PHASEI ---
Pt. transferred to room 366 via SOUMYA novoa, lap sites x4 CDI, parag drain intact, no c/o pain or nausea at this time, IV saline milad, Reyna WALKER assumed care of pt.
[2025-08-11 18:01] LABS: Albumin, Serum 3.7 gm/dL (3.5-5.0); Anion Gap 8 (7-16); BUN/Creatinine Ratio 7 Ratio (12-20); Blood Urea Nitrogen 6 mg/dL (9-23); Calcium 8.6 mg/dL (8.3-10.6); Calcium (Corrected) 8.8 mg/dL (8.5-10.1); Carbon Dioxide 27.1 mMol/L (20.0-31.0); Chloride 104 mMol/L (98-107); Creatinine (Component) 0.9 mg/dL (0.6-1.3); Estimated Creatinine Clearance 142.5 mL/min (>60); Glucose 142 mg/dL (74-106); Osmolality,Calculated 277 (275-295); Phosphorous 2.4 mg/dL (2.4-5.1); Potassium 4.2 mMol/L (3.4-5.1); Sodium 139 mMol/L (136-145); eGFR > 60 See Note
[2025-08-11] MEDS: SODIUM CHLORIDE 0.9% 1000 ML 1,000 ML 125 ML IV (18:15)
[2025-08-11] MEDS: KETOROLAC INJ 30 MG/ML VIAL IVP (18:15)
[2025-08-11] MEDS: MORPHINE SULF INJ 4 MG/ML VIAL 5 MG IVP (20:20)
--- NOTE | 2025-08-11 22:30 | PC.NURSE ---
Patient ambulating in hallway with spouse. Patient was asked if he is feeling any dizziness, pain or nausea to which the patient replied no. Patient was made aware to be careful when ambulating in hallway. Nurse monitored patient has he was ambulating the hallways.
[2025-08-12] VITALS: BP 115/70; PULSE 67; RESP 22; TEMP 35.6; O2SAT 94
[2025-08-12] MEDS: MORPHINE SULF INJ 4 MG/ML VIAL 5 MG IVP (03:42)
[2025-08-12 04:00] VITALS: BP 137/84; PULSE 68; RESP 24; TEMP 35.8; O2SAT 95
[2025-08-12] MEDS: PIPER/TAZO INJ 4.5 GM in SODIUM CHLORIDE 0.9% (POP) 100 ML IV ×2 (05:07→10:45)
[2025-08-12 06:30] LABS: Basophils # (Auto) 0.0 Thou/mm3 (0.0-0.2); Basophils % (Auto) 0 % (0-2.5); Eosinophils # (Auto) 0.0 Thou/mm3 (0.0-0.5); Eosinophils % (Auto) 0 % (0-10); Hematocrit 36.1 % (41.0-53.0); Hemoglobin 11.7 g/dL (13.5-16.0); Immature Granulocytes Auto 0.10 Thou/mm3 (0.00-0.00); Lymphocytes # (Auto) 1.6 Thou/mm3 (1.0-4.8); Lymphocytes % (Auto) 9 % (10-50); Mean Corpuscular HGB Conc 32.4 g/dl (31.0-37.0); Mean Corpuscular Hemoglobin 29.1 pg (25.0-35.0); Mean Corpuscular Volume 90 fL (80-100); Monocytes # (Auto) 1.0 Thou/mm3 (0.0-0.8); Monocytes % (Auto) 6 % (0-12); Neutrophils # (Auto) 15.4 Thou/mm3 (1.8-7.7); Neutrophils % (Auto) 85 % (37-80); Nucleated Red Blood Cell # 0.00 Thou/mm3 (0.00-0.00); Nucleated Red Blood Cell % 0 /100 WBC (0); Platelet Count 249 Thou/mm3 (140-440); RDW Standard Deviation 43.5 fL (35.1-43.9); Red Blood Count 4.02 Miln/mm3 (4.50-5.90); White Blood Count 18.1 Thou/mm3 (3.8-10.6)
[2025-08-12 06:57] LABS: Alanine Aminotransferase 34 U/L (10-49); Albumin, Serum 3.5 gm/dL (3.5-5.0); Albumin/Globulin Ratio 1.3 (1.2-2.2); Alkaline Phosphatase 68 U/L (46-116); Anion Gap 9 (7-16); Aspartate Amino Transferase 36 U/L (0-34); BUN/Creatinine Ratio 8 Ratio (12-20); Bilirubin,Total 0.6 mg/dL (0.3-1.2); Blood Urea Nitrogen 6 mg/dL (9-23); Calcium 9.0 mg/dL (8.3-10.6); Calcium (Corrected) 9.4 mg/dL (8.5-10.1); Carbon Dioxide 26.8 mMol/L (20.0-31.0); Chloride 105 mMol/L (98-107); Creatinine (Component) 0.8 mg/dL (0.6-1.3); Estimated Creatinine Clearance 160.3 mL/min (>60); Globulin 2.7 gm/dL (2.3-3.5); Glucose 107 mg/dL (74-106); Magnesium 1.9 mg/dL (1.6-2.6); Osmolality,Calculated 278 (275-295); Phosphorous 2.7 mg/dL (2.4-5.1); Potassium 3.8 mMol/L (3.4-5.1); Sodium 141 mMol/L (136-145); Total Protein 6.2 gm/dL (5.7-8.2); eGFR > 60 See Note
[2025-08-12 07:42] VITALS: BP 123/74; PULSE 72; RESP 24; TEMP 36.3; O2SAT 95
[2025-08-12] MEDS: ENOXAPARIN SOD INJ 40 MG/0.4 ML SYRINGE SC (08:11)
--- NOTE | 2025-08-12 08:39 | PD.RESPRO ---
Documentation for date of: 08/12/25 Exam Vital Signs Temp Pulse Resp BP Pulse Ox O2 Del Method O2 Flow Rate 97.3 F 72 24 H 123/74 95 Room Air 2 08/12/25 07:42 08/12/25 07:42 08/12/25 07:42 08/12/25 07:42 08/12/25 07:42 08/12/25 07:42 08/12/25 00:00 Narrative Exam General: No acute distress, well nourished, Obese Eye: PERRL, EOMI, normal conjunctiva, no scleral icterus HENT: Normocephalic, atraumatic, normal hearing, moist oral mucosa Neck: Supple, non-tender, no JVD, no lymphadenopathy Lungs: Clear to auscultation bilaterally, non-labored respirations, symmetric chest rise, no use of accessory muscles Heart: Normal S1 and S2, no S3 or S4 appreciated. Normal rate and regular rhythm, no murmurs, rubs gallops, or edema. Peripheral pulses intact bilaterally, capillary refill brisk distally Abdomen: Soft, TTP RUQ, non-distended, normal bowel sounds. No guarding or rebound tenderness. Musculoskeletal: Normal range of motion and strength, no tenderness or swelling Skin: Skin is warm, dry, no rashes or lesions. Neurologic: Alert, awake and oriented x3. CN II-XII grossly intact. No focal neuro deficits. No signs of meningeal irritation noted. Psychiatric: Cooperative, appropriate mood and affect Objective Labs 08/12/25 05:37 08/12/25 05:37 Labs: Laboratory Results - last 24 hr 08/11/25 08/12/25 17:18 05:37 WBC 18.1 H D RBC 4.02 L Hgb 11.7 L D Hct 36.1 L MCV 90 MCH 29.1 MCHC 32.4 RDW Std Deviation 43.5 Plt Count 249 D Neut % (Auto) 85 H Lymph % (Auto) 9 L [place] % (Auto) 6 Eos % (Auto) 0 Baso % (Auto) 0 Neut # (Auto) 15.4 H Lymph # (Auto) 1.6 [place] # (Auto) 1.0 H Eos # (Auto) 0.0 Baso # (Auto) 0.0 Immature Gran # (Auto) 0.10 H Absolute Nucleated RBC 0.00 Immature Gran % 1 H Nucleated RBC % 0 Sodium 139 141 Potassium 4.2 D 3.8 Chloride 104 105 Carbon Dioxide 27.1 26.8 Anion Gap 8 9 BUN 6 L 6 L Creatinine 0.9 0.8 Estim Creat Clear Calc 142.5 160.3 eGFR > 60 > 60 BUN/Creatinine Ratio 7 L 8 L Glucose 142 H 107 H Calculated Osmolality 277 278 Calcium 8.6 9.0 Corrected Calcium 8.8 9.4 Phosphorus 2.4 2.7 Magnesium 1.9 Total Bilirubin 0.6 D AST 36 H ALT 34 Alkaline Phosphatase 68 Total Protein 6.2 Albumin 3.7 3.5 Globulin 2.7 Albumin/Globulin Ratio 1.3 ABG Interpretation ABG results: 08/10/25 21:12 VBG pH 7.53 VBG pCO2 30 L VBG pO2 61 H VBG Base Excess 4 H Quality Measures Quality Measures VTE prophylaxis Assessment & Plan Assessment Current Active Medications: Generic Name Dose Route Start Last Admin Trade Name Freq PRN Reason Stop Dose Admin Acetaminophen 650 mg 08/11/25 04:08 Acetaminophen 325 Mg Tablet PO 09/10/25 04:07 Q6H PRN Fever >100.4 Hydrocodone Bitart/Acetaminophen 1 tab 08/11/25 04:08 Hydrocodone/Apap 5/325 Tablet PO 08/16/25 04:07 Q6HR PRN PAIN SCALE 4-6 (Moderate Enoxaparin Sodium 40 mg 08/11/25 09:00 08/12/25 08:11 Enoxaparin Sod Inj 40 Mg/0.4 Ml Syringe SC 08/25/25 08:59 40 mg QDAY KENDY Administration Piperacillin Sod/Tazobactam 100 mls @ 25 mls/hr 08/11/25 06:00 08/12/25 05:07 Sod 4.5 gm/ Sodium Chloride IV 08/18/25 05:59 25 mls/hr Q8HR KENDY Administration Protocol Sodium Chloride 1,000 mls @ 125 mls/hr 08/11/25 13:10 08/11/25 18:15 Ns IV 09/10/25 13:09 125 mls/hr .Q8H KENDY Administration Ketorolac Tromethamine 30 mg 08/11/25 13:10 08/11/25 18:15 Ketorolac Inj 30 Mg/Ml Vial IVP 08/16/25 13:09 30 mg Q6HR PRN Administration PAIN 1-6 (mild-mod Morphine Sulfate 5 mg 08/11/25 13:10 08/12/25 03:42 Morphine Sulf Inj 4 Mg/Ml Vial IVP 08/16/25 13:09 5 mg Q4HR PRN Administration PAIN SCALE 4-6 (Moderate Ondansetron HCl 4 mg 08/11/25 04:08 Ondansetron Inj 2 Mg/Ml Inj 2 Ml IVP 09/10/25 04:07 Q6H PRN NAUSEA OR VOMITING Protocol Ondansetron HCl 4 mg 08/11/25 13:10 Ondansetron Inj 2 Mg/Ml Inj 2 Ml IVP 09/10/25 13:09 Q4HR PRN NAUSEA OR VOMITING Plan Mr. Bustamante is 39-year-old gentleman with remote history of valley fever who is admitted for management of acute calculous cholecystitis, s/p cholecystectomy on 08/11, cont with iv abx, advance diet as tolerated. #Acute severe calculous cholecystitis s/p lap cholecystectomy #Empyema of the gallbladder #Hyperbilirubinemia #Abdominal pain Sudden onset abdominal pain three days prior to admission with associated nausea, vomiting, fever, chills, dark-colored urine. Initial Tmax of 102.3 ?F and pulse of 129. Initial WBC of 23.7, ESR 79, CRP greater than 25, Pro-Segundo 0.5, T. bili 1.6, with normal LFTs. CT A/P showed acute calculous cholecystitis, small fat-containing hernia. Gallbladder ultrasound Acute calculus cholecystitis, Borderline thickening gallbladder wall 0.4 cm, Common bile duct 0.3 cm s/p laparoscopic cholecystectomy 08/[address] Grijalva: Patient is found to have extensive inflammation of the gallbladder and the omentum was covering it. After it was released gallbladder was found to have greenish drainage and this showed a perforation in the fundic region. Wound was irrigated. Midportion of the gallbladder opened up and purulent material from empyema of the gallbladder leaked out. gallbladder was removed from the liver bed and in the process it was tiring and the stones were coming out. Gallbladder was firmly adherent to liver. Removed all stones, left posterior wall of gallbladder adherent to liver due to risk of bleeding. Plan: ? IV Zosyn (08/11- ) ? Follow-up blood cultures ? General Surgery consulted, appreciate recs ? Clear liquid diet, advance as tolerated. ? LR at 75 cc/h - APAP 650 po q6h PRN - Ketorolac 30 mg IV q6h PRN - [place] 5 mg PO q6h prn - morphine 5 mg IV q4hr prn #Electrolye disturbances #Hypokalemia likely 2/2 gi losses in setting of cholecystitis above, pt had lots of nausea and vomiting Plan - replete as indicated Hospital management: Disposition: IV antibiotics Fluids: LR at 75 cc/h Diet: clear Lines: PIV DVT prophylaxis: enoxaparin 40 mg SC daily CODE STATUS: full code Plan discussed with Dr. Papo Ortiz and Dr. Bonnie Agosto MD PGY1
--- NOTE | 2025-08-12 08:48 | PD.SURPROG ---
Documentation for date of: 08/12/25 Subjective Subjective Brief History: History of present illness revealed that the patient developed this pain on Thursday morning which was 4 days ago. The pain persisted and the patient could not eat much. She also had nausea and vomiting. Because of the increasing pain he came to the emergency room and was found to have a calculous cholecystitis. Patient had a similar episode about 5 to 6 months ago but the pain went away on its own. At that time he did not seek medical attention and therefore no diagnosis was made. 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 He denies major medical illness like diabetes or hypertension Narrative: Patient is feeling better tolerating liquid diet. Exam Vital Signs Temp Pulse Resp BP Pulse Ox O2 Del Method O2 Flow Rate 97.3 F 72 24 H 123/74 95 Room Air 2 08/12/25 07:42 08/12/25 07:42 08/12/25 07:42 08/12/25 07:42 08/12/25 07:42 08/12/25 07:42 08/12/25 00:00 Vital signs are normal Routine Abdominal Exam Comments: Abdominal examination shows hypoactive bowel sounds and mild distention. MICHELLE drainage is decreased in the amount. Results Results: Laboratory Laboratory Narrative: Laboratory test showed improving WBC. Hemoglobin is stable. Assessment & Plan Assessment Additional comments: Pression: Stable postoperative course following acute cholecystitis Plan Plan: I would like to give him another day of IV antibiotics however patient insist that he has to go home around important assignment he has planned 1 [address] ago[address] can place him on Augmentin and discharge him monitor his MICHELLE drainage at home. I will remove the Armin-Mcdonald drain on Thursday in my office. PROCEDURES: Procedures Laparoscopic cholecystectomy
[2025-08-12 09:34] VITALS: PULSE 81; RESP 18; RESP 94
--- NOTE | 2025-08-12 09:59 | PC.NURSE ---
Notified Dr. Agosto of dc order written by Dr. Rivera, she ok'd discharge
--- NOTE | 2025-08-12 11:31 | ESDS_ITS ---
Planned Discharge Date 08/12/25 DS: Providers Provider Date of admission: 08/11/25 04:14 Primary care physician: Physician No Primary/Family Admitting Provider: Sushma Mcclendon MD Attending Provider on Admission: Sushma Mcclendon MD Attending Provider on DC: Dr. Nicole Discharging Provider: Sarah Agosto MD DS: Diagnosis Problem List Completed Was Problem List Reviewed/Reconciled?: Yes Hospital Course Hospital Course Hospital course: Hospital Course Mr. Bustamante is a 39 y/o male with PMH valley fever (remote hx) who presented to the ED on 08/11 with acute onset sharp b/l lower and RUQ abdominal pain that radiates to back and right shoulder x3 days. Associated with fevers, chills, nausea, vomiting, decreased PO intake. In the ED, patient had Tmax 102.3, tachycardia to 120s, leukocytosis WBC 23.7, elevated T bili 1.6, direct bili 0.7 with LFTs WNL. ESR 79, CRP > 25, procal 0.5. CT a/p showed acute calculous cholecystitis, small fat-containing hernia. Gallbladder US showed acute calculus cholecystitis; borderline thickening gallbladder wall 0.4 cm, Common bile duct 0.3 cm. Patient was started on IV zosyn (08/10-08/12). Dr. Alegria performed laparoscopic cholecystectomy on 08/11. The gallbladder was completely covered with omentum. Gallbladder had greenish drainage with perforation in the fundic region. The wound was irrigated, and the midportion of the gallbladder was opened up to reveal purulent material from empyema. Because the gallbladder was firmly adherent to the liver, all the stones were removed one by one and the posterior wall of the gallbladder was not dissected out due to concern for bleeding from liver. MICHELLE drain was placed and draining minimal fluid. Patient tolerated the procedure well as well as advancing diet. This AM her reported that his pain has improved and denies nausea or vomiting. Patient to be discharged on Augmentin PO x 6 days with instructions on how to care for MICHELLE drain. He will follow up with Dr. Alegria on Thursday, 08/15 for MICHELLE drain removal. Patient hemodynamically stable. Labs reviewed and stable. Leukocytosis now downtrending. Hyperbilirubinemia resolved. Blood cultures at 24 hours negative. Patient stable and medically cleared for discharge. Diagnoses #Acute severe calculous cholecystitis s/p laparoscopic cholecystectomy #Empyema of the gallbladder #Hyperbilirubinemia #Electrolyte disturbances - resolved #Hypokalemia - resolved Surgical Discharge Instructions: Clear liquids today. Regular diet tomorrow. Remove dressing tomorrow and shower. Avoid constipation; use laxative of choice. Take care of MICHELLE drain and record accurately the amount of fluid. Patient may shower with the MICHELLE drain in place. Take antibiotics (Amoxicillin-Clavullanate twice daily) and pain medication as prescribed. Follow in in Dr. Rivera's (Dr. Grijalva's) office on August 15 at [address]. Call [phone] for an appointment time Sarah Agosto MD PGY1 Time Spent with Patient Time attestation: Total time spent providing and/or coordinating discharge services: 36 minutes Time spent: Greater than 30 minutes Exam Vital Signs Temp Pulse Resp BP Pulse Ox O2 Del Method O2 Flow Rate 97.3 F 81 18 123/74 95 Room Air 2 08/12/25 07:42 08/12/25 09:34 08/12/25 09:34 08/12/25 07:42 08/12/25 07:42 08/12/25 07:42 08/12/25 00:00 Narrative Exam General: No acute distress, well nourished Eye: PERRL, EOMI, normal conjunctiva, no scleral icterus HENT: Normocephalic, atraumatic, normal hearing, moist oral mucosa Neck: Supple, non-tender, no JVD, no lymphadenopathy Lungs: Clear to auscultation bilaterally, non-labored respirations, symmetric chest rise, no use of accessory muscles Heart: Normal S1 and S2, no S3 or S4 appreciated. Normal rate and regular rhythm, no murmurs, rubs gallops, or edema. Peripheral pulses intact bilaterally, capillary refill brisk distally Abdomen: Soft, RUQ TTP but improved from previous exam, non-distended, normal bowel sounds. MICHELLE drain in place. Musculoskeletal: Normal range of motion and strength, no tenderness or swelling Skin: Skin is warm, dry, no rashes or lesions. Laparoscopy incisions clean, without drainage, covered in bandage Neurologic: Alert, awake and oriented x3. CN II-XII grossly intact. No focal neuro deficits. No signs of meningeal irritation noted. Psychiatric: Cooperative, appropriate mood and affect Discharge Plan Plan Patient Disposition: HOME (Self Care) Care Plan Goals: Surgical Discharge Instructions: Clear liquids today. Regular diet tomorrow. Remove dressing tomorrow and shower. Avoid constipation; use laxative of choice. Take care of MICHELLE drain and record accurately the amount of fluid. Patient may shower with the MICHELLE drain in place. Take antibiotics (Amoxicillin-Clavullanate twice daily) and pain medication as prescribed. Follow in in Dr. Rivera's (Dr. Grijalva's) office on August 15 at [address]. Call [phone] for an appointment time Prescriptions/Referrals Prescriptions/Med Rec: New amoxicillin-pot clavulanate 875-125 mg tablet 1 tab PO Q12H Qty: 20 0RF hydrocodone-acetaminophen 7.5-325 mg tablet 1 tab PO Q6H MDD 4 PRN (Reason: pain) Qty: 20 0RF Continued fluconazole [Diflucan] 50 mg Tablet 100 mg PO QDAY albuterol sulfate 90 mcg/actuation HFA aerosol inhaler 2 puff inhalation QID PRN (Reason: shortness of breath or wheezing) Qty: 18 0RF acetaminophen 500 mg capsule 1,000 mg PO Q6H PRN (Reason: fever or pain) Qty: 60 0RF Discontinued azithromycin 250 mg tablet See Rx Instructions .ROUTE .COMPLEX Qty: 6 0RF Rx Instructions: take 500 mg today (day 1), then 250 mg for 4 days (days 2-5) Referrals: No Primary/Family,Physician [Primary Care Provider] Airam Rivera MD [Physician, General Surgery] Patient/Caregiver Discharge Instructions Education Materials: Cholecystectomy, Preventing Surgical Site Infections Print Language: Lithuanian Activity Restrictions/Additional Instructions: Clear liquids today regular diet tomorrow remove dressing tomorrow and shower Avoid constipation; use laxative of choice Take care of MICHELLE drain and record accurately the amount of fluid Patient may shower with the MICHELLE drain in place Take antibiotics and pain medication as prescribed F/u in my office on August 15 at [address]. Call for an appointment time Stand Alone Forms: Najma Award Info., Patient Portal Info Letter Discharge Order Discharge Orders: Discharge (Routine); Ordered 08/12/25 Ordered By: Airam Rivera Quality Discharge Quality Measures VTE prophylaxis MD Attestestation MD Attestation I have seen and examined the patient. I was physically present for the mae portions of the services provided including history, physical exam, diagnosis, treatment plans and orders. I agree with assessment and plan of care as documented by residents. Even though this this note was carefully revised there may still be minor errors in public transit trolley driver due to voice recognition software. Marlon Nicole MD
[2025-08-12 11:43] VITALS: BP 135/85; PULSE 92; RESP 18; TEMP 36.3; O2SAT 95
== END 2025-08-12 11:45 | disposition home or self-care (01) | DRG 263 ==
LOC: SERX 08-11 03:06 → SERHOLD 08-11 04:27 → S3NX 08-11 08:11
PROVIDERS: Surgery; Admitting Provider Student in an Organized Health Care Education/Training Program; Emergency Provider Emergency Medicine; Visit Provider Student in an Organized Health Care Education/Training Program
PROC: 0FT44ZZ Resection of Gallbladder, Percutaneous Endoscopic Approach (ICD-10-PCS; CPT 47562; principal; 2025-08-11 09:30)
DX: K80.00 Calculus of gallbladder with acute cholecystitis without obstruction (principal); E87.6 Hypokalemia; E66.9 Obesity, unspecified; Z68.39 Body mass index [BMI] 39.0-39.9, adult
CPT/HCPCS: 36415; 71045; 74176; 76705; 80053; 80061; 80069; 80076; 80320; 81001; 82150; 82248; 82803; 83036; 83605; 83690; 83735; 84100; 84145; 84443; 84484; 85025; 85652; 86140; 87040; 93225; 94664; 96361; 96365; 96375; 99284; A4217; A4649; J0131; J1100; J1171; J1650; J1885; J2250; J2270; J2371; J2405; J2543; J2704; J3010; J3490; J7030; J7120; A9270; G0480